=== PATIENT | male | born 1945 | race Caucasian/White ===

== ENCOUNTER 2018-10-29 11:40 | Inpatient (IN) | payer MEDICARE, BC, OTHER ==
[~2018-10-29] VITALS: Ht 160 cm; Wt 73.6 kg
[2018-10-29] VITALS (10 sets, daily range): BP systolic 91–110; BP diastolic 52–75; BMI 23.2
[2018-10-29] MEDS ORDERED: VITAMIN D3400 UNI1 PO (11:50)
[2018-10-29] MEDS ORDERED: LIPITOR20 MG PO (11:52)
[2018-10-29] MEDS ORDERED: HUMIRA SC (11:52)
[2018-10-29] MEDS ORDERED: ALEVE220 MG PO (11:53)
[2018-10-29 12:55] LABS: HEMOGLOBIN 8.8 g/dL (13.5-17.5); MCHC 33.8 g/dL (31.0-37.0); MCV 85.8 fL (80.0-100.0); MEAN PLATELET VOLUME 10.3 fL (7.4-10.4); PLATELET COUNT 145 10x3/uL (130-400); RBC 3.03 10x6/uL (4.20-6.10); RDW 17.4 % (11.5-14.5)
[2018-10-29 12:59] LABS: WBC 0.4 10x3/uL (4.8-10.8)
[2018-10-29 13:01] LABS: APTT 47.6 SECONDS (22.8-39.4); INR 1.33 (0.85-1.17); PROTIME 15.9 SECONDS (11.6-15.0)
[2018-10-29 13:16] LABS: BASOPHILS 4 % (0-2); LYMPHOCYTES 48 % (15-50); MONOCYTES 20 % (2-11); NEUTROPHILS 14 % (40-80); PLATELET ESTIMATE DECREASED; PLATELET MORPHOLOGY NORMAL PLT MORPH
[2018-10-29 13:21] LABS: CKMB 0.3 U/L (0.0-3.6)
[2018-10-29 13:25] LABS: D-DIMER-QUANTITATIVE 1.61 ug/mLFEU (0.20-0.54)
[2018-10-29 13:37] LABS: TROPONIN-I 0.139 ng/mL (0.000-0.060)
[2018-10-29 14:25] LABS: ALBUMIN 2.7 g/dL (3.4-5.0); ANION GAP 18.9 mmol/L (8-16); BILIRUBIN - TOTAL 1.55 mg/dL (0.2-1.3); CALCIUM 8.1 mg/dL (8.5-10.1); CARBON DIOXIDE 22.1 mmol/L (21.0-32.0); CREATININE - SERUM 1.6 mg/dL (0.6-1.3)
[2018-10-29 18:20] LABS: APPEARANCE CLEAR (CLEAR); BILIRUBIN NEGATIVE (NEGATIVE); COLOR AMBER (YELLOW); GLUCOSE NEGATIVE (NEGATIVE); KETONE NEGATIVE (NEGATIVE); NITRITE NEGATIVE (NEGATIVE); PROTEIN TRACE mg/dL (NEGATIVE); UROBILINOGEN NORMAL (NORMAL)
[2018-10-30] VITALS (25 sets, daily range): BP systolic 79–129; BP diastolic 47–82
[2018-10-30 04:06] LABS: BASOPHILS 0 % (0-2); EOSINOPHILS 0 % (0-7); HEMATOCRIT 20.5 % (42.0-54.0); MCH 30.1 pg (26.0-34.0); MCHC 34.6 g/dL (31.0-37.0); MCV 86.9 fL (80.0-100.0); MEAN PLATELET VOLUME 9.7 fL (7.4-10.4); MONOCYTES 22.2 % (2-11); NEUTROPHILS 27.8 % (40-80); RDW 17.5 % (11.5-14.5)
[2018-10-30 04:24] LABS: HEMOGLOBIN 7.1 g/dL (13.5-17.5); PLATELET COUNT 108 10x3/uL (130-400); RBC 2.36 10x6/uL (4.20-6.10); WBC 0.5 10x3/uL (4.8-10.8)
[2018-10-30 05:01] LABS: ALBUMIN 1.8 g/dL (3.4-5.0); ALT (SGPT) 16 U/L (10-68); BILIRUBIN - TOTAL 1.02 mg/dL (0.2-1.3); CALC OSMOLALITY 272 mosm/kg (275-300); CHLORIDE - SERUM 105 mmol/L (98-107); CREATININE - SERUM 1.3 mg/dL (0.6-1.3); GLUCOSE 95 mg/dL (74-106); POTASSIUM - SERUM 3.9 mmol/L (3.5-5.1); SODIUM 136 mmol/L (136-145); T4 THYROXINE 6.9 ug/dL (4.7-13.3); UREA NITROGEN 16 mg/dL (7-18); eGFR NON AFRICAN AMERICAN 58 mL/min (90-120)
[2018-10-30 05:31] LABS: ALKALINE PHOSPHATASE 57 U/L (46-116); CKMB 0.6 U/L (0.0-3.6); CREATINE KINASE 110 UL (21-232); PROTEIN - SERUM 5.4 g/dL (6.4-8.2)
[2018-10-30 05:32] LABS: THYROID STIMULATING HORMONE 1.78 uIU/mL (0.36-3.74); TROPONIN-I 0.173 ng/mL (0.000-0.060)
[2018-10-30 05:33] LABS: CALCIUM 6.7 mg/dL (8.5-10.1)
[2018-10-30 06:59] LABS: APPEARANCE CLEAR (CLEAR); BILIRUBIN NEGATIVE (NEGATIVE); COLOR YELLOW (YELLOW); GLUCOSE NEGATIVE (NEGATIVE); KETONE NEGATIVE (NEGATIVE); NITRITE NEGATIVE (NEGATIVE); PROTEIN NEGATIVE (NEGATIVE); UROBILINOGEN NORMAL (NORMAL)
[2018-10-31] VITALS (24 sets, daily range): BP systolic 94–142; BP diastolic 49–88; BMI 25.3
[2018-10-31 04:12] LABS: BASOPHILS 0 % (0-2); EOSINOPHILS 0 % (0-7); IMMATURE GRANULOCYTES 1.7 % (0-5); MCH 29.3 pg (26.0-34.0); MCHC 34.6 g/dL (31.0-37.0); MEAN PLATELET VOLUME 10.4 fL (7.4-10.4); MONOCYTES 29.2 % (2-11); NEUTROPHILS 49.1 % (40-80); RDW 16.8 % (11.5-14.5)
[2018-10-31 04:13] LABS: ALBUMIN 1.8 g/dL (3.4-5.0); ALKALINE PHOSPHATASE 64 U/L (46-116); BILIRUBIN - TOTAL 1.03 mg/dL (0.2-1.3); CALC OSMOLALITY 264 mosm/kg (275-300); CARBON DIOXIDE 16.1 mmol/L (21.0-32.0); CHLORIDE - SERUM 104 mmol/L (98-107); GLUCOSE 82 mg/dL (74-106); POTASSIUM - SERUM 3.4 mmol/L (3.5-5.1); PROTEIN - SERUM 4.8 g/dL (6.4-8.2); SODIUM 133 mmol/L (136-145); UREA NITROGEN 13 mg/dL (7-18); eGFR NON AFRICAN AMERICAN 78 mL/min (90-120)
[2018-10-31 04:14] LABS: ALT (SGPT) 21 U/L (10-68); CALCIUM 6.1 mg/dL (8.5-10.1)
[2018-10-31 04:16] LABS: HEMATOCRIT 28.3 % (42.0-54.0); HEMOGLOBIN 9.8 g/dL (13.5-17.5); MCV 84.5 fL (80.0-100.0); PLATELET COUNT 148 10x3/uL (130-400); RBC 3.35 10x6/uL (4.20-6.10); WBC 1.2 10x3/uL (4.8-10.8)
[2018-10-31 07:05] LABS: HEMATOCRIT 30.3 % (42.0-54.0); HEMOGLOBIN 10.6 g/dL (13.5-17.5); MCH 29.4 pg (26.0-34.0); MCV 84.2 fL (80.0-100.0); RDW 16.9 % (11.5-14.5)
[2018-10-31 07:06] LABS: PLATELET COUNT 188 10x3/uL (130-400); WBC 2.4 10x3/uL (4.8-10.8)
[2018-10-31 07:47] LABS: ALBUMIN 1.8 g/dL (3.4-5.0); ANION GAP 18.7 mmol/L (8-16); BILIRUBIN - TOTAL 1.11 mg/dL (0.2-1.3); CARBON DIOXIDE 18.7 mmol/L (21.0-32.0); CREATININE - SERUM 1.1 mg/dL (0.6-1.3); POTASSIUM - SERUM 3.4 mmol/L (3.5-5.1); PROTEIN - SERUM 5.6 g/dL (6.4-8.2)
[2018-10-31 08:03] LABS: CALCIUM 6.5 mg/dL (8.5-10.1); TROPONIN-I 0.464 ng/mL (0.000-0.060)
[2018-10-31 08:15] LABS: ANISOCYTOSIS OCC; CRENATED CELLS OCC; LYMPHOCYTES 22 % (15-50); MONOCYTES 18 % (2-11); NEUTROPHILS 52 % (40-80); PLATELET ESTIMATE NORMAL; ROULEAUX OCC
[2018-11-01] VITALS (24 sets, daily range): BP systolic 94–137; BP diastolic 55–77
[2018-11-01 06:43] LABS: HEMATOCRIT 26.5 % (42.0-54.0); MCH 28.8 pg (26.0-34.0); MCV 84.7 fL (80.0-100.0); MEAN PLATELET VOLUME 10.4 fL (7.4-10.4); PLATELET COUNT 178 10x3/uL (130-400); RBC 3.13 10x6/uL (4.20-6.10); RDW 17.2 % (11.5-14.5); WBC 3.3 10x3/uL (4.8-10.8)
[2018-11-01 06:54] LABS: ALBUMIN 1.5 g/dL (3.4-5.0); ALKALINE PHOSPHATASE 57 U/L (46-116); BILIRUBIN - TOTAL 0.79 mg/dL (0.2-1.3); CALC OSMOLALITY 272 mosm/kg (275-300); CARBON DIOXIDE 16.2 mmol/L (21.0-32.0); CHLORIDE - SERUM 105 mmol/L (98-107); GLUCOSE 90 mg/dL (74-106); POTASSIUM - SERUM 3.1 mmol/L (3.5-5.1); SODIUM 136 mmol/L (136-145); UREA NITROGEN 14 mg/dL (7-18); eGFR NON AFRICAN AMERICAN 78 mL/min (90-120)
[2018-11-01 07:00] LABS: ALT (SGPT) 15 U/L (10-68)
[2018-11-01 07:01] LABS: CALCIUM 6.3 mg/dL (8.5-10.1); TROPONIN-I 1.231 ng/mL (0.000-0.060)
[2018-11-01 07:53] LABS: LYMPHOCYTES 20 % (15-50); MONOCYTES 18 % (2-11); NEUTROPHILS 45 % (40-80); PLATELET ESTIMATE NORMAL
--- NOTE | 2018-11-01 17:48 | MORECARE ---
CASE MANAGEMENT DISCHARGE SUMMARY PATIENT: MEAGHAN MARADIAGA UNIT: [id number] ADM DATE: 10/29/18 AGE: 73 : 47 SEX: M ROOM/BED: D.2306 AUTHOR: ANA POLLACK PHYSICIAN: REFERRING PHYSICIAN: DAYANNA SANDERS MD DATE OF SERVICE: 11/01/18 Discharge Plan Patient Name: MEAGHAN MARADIAGA Facility: [facility]:[place] : 1945 Planned Disposition: Anticipated Discharge Date: Discharge Date: Expected LOS: Initial Reviewer: [email or web address] Initial Review Date: 10/29/2018 Generated: 11/01/18 6:47 pm Patient Name: MEAGHAN MARADIAGA Page 26256 at 1748 All edits/amendments must be made on the electronic document DICTATION DATE: 11/01/181746 DONOR SERVICES COORDINATOR: SADIE 11/01/181746 RPT#: [id number] [place] DATE: STATUS: ADM IN [facility] [address] [place] [address] END OF REPORT
[2018-11-02] VITALS (22 sets, daily range): BP systolic 96–142; BP diastolic 52–81; Ht 160 cm; Wt 73.6 kg
[2018-11-02 06:22] LABS: ALBUMIN 1.5 g/dL (3.4-5.0); ALKALINE PHOSPHATASE 77 U/L (46-116); ALT (SGPT) 17 U/L (10-68); BILIRUBIN - TOTAL 0.72 mg/dL (0.2-1.3); CALC OSMOLALITY 273 mosm/kg (275-300); CARBON DIOXIDE 17.5 mmol/L (21.0-32.0); CHLORIDE - SERUM 105 mmol/L (98-107); GLUCOSE 129 mg/dL (74-106); PROTEIN - SERUM 5.2 g/dL (6.4-8.2); SODIUM 136 mmol/L (136-145); UREA NITROGEN 12 mg/dL (7-18); eGFR NON AFRICAN AMERICAN 78 mL/min (90-120)
[2018-11-02 06:26] LABS: POTASSIUM - SERUM 2.8 mmol/L (3.5-5.1)
[2018-11-02 06:27] LABS: CALCIUM 6.8 mg/dL (8.5-10.1)
[2018-11-02 06:40] LABS: HEMATOCRIT 27.1 % (42.0-54.0); HEMOGLOBIN 9.4 g/dL (13.5-17.5); MCH 28.7 pg (26.0-34.0); MCHC 34.7 g/dL (31.0-37.0); MEAN PLATELET VOLUME 10.2 fL (7.4-10.4); RBC 3.28 10x6/uL (4.20-6.10); RDW 17.6 % (11.5-14.5)
[2018-11-02 06:45] LABS: MCV 82.6 fL (80.0-100.0); PLATELET COUNT 249 10x3/uL (130-400); WBC 7.8 10x3/uL (4.8-10.8)
[2018-11-02 07:39] LABS: LYMPHOCYTES 16 % (15-50); MONOCYTES 11 % (2-11); NEUTROPHILS 60 % (40-80); PLATELET ESTIMATE NORMAL; PLATELET MORPHOLOGY NORMAL PLT MORPH
--- NOTE | 2018-11-02 18:13 | MORECARE ---
CASE MANAGEMENT DISCHARGE SUMMARY PATIENT: MEAGHAN MARADIAGA UNIT: [id number] ADM DATE: 10/29/18 AGE: 73 : 47 SEX: M ROOM/BED: D.2306 AUTHOR: ANA POLLACK PHYSICIAN: REFERRING PHYSICIAN: DAYANNA SANDERS MD DATE OF SERVICE: 11/02/18 Discharge Plan Patient Name: MEAGHAN MARADIAGA Facility: [facility]:[place] : 1945 Planned Disposition: Home Anticipated Discharge Date: Discharge Date: Expected LOS: Initial Reviewer: [email or web address] Initial Review Date: 10/29/2018 Generated: 11/02/18 7:13 pm Comments DCP- Discharge Planning Updated by [email or web address]: Josi Nava on 11/01/18 4:[address] CM attempted to meet with patient regarding discharge planning. He is currently on BiPAP and unable to speak at this time. CM will continue to follow and assist as needed with discharge planning / needs. DCPIA - Discharge Planning Initial Assessment Updated by [email or web address]: Josi Nava on 11/02/18 6:10 pm * Is the patient Alert and Oriented? Yes * How many steps to enter\exit or inside your home? * PCP Dr. Mcdonald - [facility] * [facility] * Preadmission Environment Home with Family * ADLs Independent * Other Equipment walker, cane * List name and contact numbers for known caregivers / representatives who currently or will assist patient after discharge: Nimisha Maradiaga - - [phone] * Verbal permission to speak to the caregivers and representatives has been obtained from the patient. N/A * Community resources currently utilized None * Additional services required to return to the preadmission environment? No * Can the patient safely return to the preadmission environment? Yes * Has this patient been hospitalized within the prior 30 days at any hospital? No Last DP export: 11/01/18 4:47 pm Patient Name: MEAGHAN MARADIAGA Page 78855 at 1813 All edits/amendments must be made on the electronic document DICTATION DATE: 11/02/181812 PHOTO MASK INSPECTOR: SADIE 11/02/18 1813 RPT#: [id number] DC DATE: STATUS: ADM IN [facility] [address] [facility] [place] [address] END OF REPORT
--- NOTE | 2018-11-02 18:21 | MORECARE ---
CASE MANAGEMENT DISCHARGE SUMMARY PATIENT: MEAGHAN MARADIAGA UNIT: [id number] ADM DATE: 10/29/18 AGE: 73 : 47 SEX: M ROOM/BED: D.2306 AUTHOR: RANJEET,DOC PHYSICIAN: REFERRING PHYSICIAN: DAYANNA SANDERS MD DATE OF SERVICE: 11/02/18 Discharge Plan Patient Name: MEAGHAN MARADIAGA Facility: [facility]:[place] : 1945 Planned Disposition: Home Anticipated Discharge Date: Discharge Date: Expected LOS: Initial Reviewer: [email or web address] Initial Review Date: 10/29/2018 Generated: 11/02/18 7:21 pm Comments DCP- Discharge Planning Updated by [email or web address]: Josi Nava on 11/02/18 5:[address] Patient Name: MEAGHAN MARADIAGA Admission Status: ER Accout number: [id number] Admission Date: 10-29-2018 : 1945 Admission Diagnosis:SEPSIS, UNSPECIFIED ORGANISM Attending: DAYANNA SANDERS Current LOS: 4 Anticipated DC Date: Planned Disposition: Home Primary Insurance: MEDICARE A & B Discharge Planning Comments: CM met with patient at bedside. Patient states he lives at home with his (Nimisha) and plans to return upon discharge. Patient states he does have a walker and cane at home. Patient denies any home health services currently. Patient may need walk test if still requiring 02 upon discharge. CM will continue to follow and assist as needed with discharge planning / needs. Superintendent Custodian Janitor: Josi Nava DCP- Discharge Planning Updated by [email or web address]: Josi Nava on 11/01/18 4:[address] CM attempted to meet with patient regarding discharge planning. He is currently on BiPAP and unable to speak at this time. CM will continue to follow and assist as needed with discharge planning / needs. DCPIA - Discharge Planning Initial Assessment Updated by [email or web address]: Josi Nava on 11/02/18 6:10 pm * Is the patient Alert and Oriented? Yes * How many steps to enter\exit or inside your home? * PCP Dr. Mcdonald - [place] [facility] * [facility] * Preadmission Environment Home with Family * ADLs Independent * Other Equipment walker, cane * List name and contact numbers for known caregivers / representatives who currently or will assist patient after discharge: Nimisha Maradiaga - - [phone] * Verbal permission to speak to the caregivers and representatives has been obtained from the patient. N/A * Community resources currently utilized None * Additional services required to return to the preadmission environment? No * Can the patient safely return to the preadmission environment? Yes * Has this patient been hospitalized within the prior 30 days at any hospital? No Last DP export: 11/02/18 5:13 pm Patient Name: MEAGHAN MARADIAGA Page 55727 at 1821 All edits/amendments must be made on the electronic document DICTATION DATE: 11/02/181820 WASTE DISPOSAL LEAKAGE TESTER: SADIE 11/02/181820 RPT#: [id number] DC DATE: STATUS: ADM IN [facility] [address] [place] [address] END OF REPORT
[2018-11-03] VITALS: BP 125/78
[2018-11-03 04:00] VITALS: BP 129/62
[2018-11-03 08:20] LABS: HEMATOCRIT 28.3 % (42.0-54.0); MCH 29.2 pg (26.0-34.0); MCHC 35.3 g/dL (31.0-37.0); MCV 82.5 fL (80.0-100.0); PLATELET COUNT 268 10x3/uL (130-400); RBC 3.43 10x6/uL (4.20-6.10); RDW 18.2 % (11.5-14.5)
[2018-11-03 08:23] LABS: WBC 10.8 10x3/uL (4.8-10.8)
[2018-11-03 08:31] LABS: ALBUMIN 1.4 g/dL (3.4-5.0); ALKALINE PHOSPHATASE 91 U/L (46-116); ALT (SGPT) 18 U/L (10-68); BILIRUBIN - TOTAL 0.74 mg/dL (0.2-1.3); CALC OSMOLALITY 273 mosm/kg (275-300); CALCIUM 7.2 mg/dL (8.5-10.1); CARBON DIOXIDE 19.4 mmol/L (21.0-32.0); CHLORIDE - SERUM 106 mmol/L (98-107); GLUCOSE 110 mg/dL (74-106); SODIUM 137 mmol/L (136-145); UREA NITROGEN 10 mg/dL (7-18); eGFR NON AFRICAN AMERICAN 78 mL/min (90-120)
[2018-11-03 08:40] LABS: POTASSIUM - SERUM 2.6 mmol/L (3.5-5.1)
[2018-11-03 08:51] LABS: LYMPHOCYTES 21 % (15-50); MONOCYTES 9 % (2-11); NEUTROPHILS 60 % (40-80); PLATELET ESTIMATE NORMAL; PLATELET MORPHOLOGY GIANT PLTS PRESENT
--- NOTE | 2018-11-03 08:52 | MORECARE ---
CASE MANAGEMENT DISCHARGE SUMMARY PATIENT: MEAGHAN MARADIAGA UNIT: [id number] ADM DATE: 10/29/18 AGE: 73 : 47 SEX: M ROOM/BED: D.2108 AUTHOR: RANJEET,DOC PHYSICIAN: REFERRING PHYSICIAN: DAYANNA SANDERS MD DATE OF SERVICE: 11/03/18 Discharge Plan Patient Name: MEAGHAN MARADIAGA Facility: [facility]:[place] : 1945 Planned Disposition: Home Anticipated Discharge Date: Discharge Date: Expected LOS: Initial Reviewer: [email or web address] Initial Review Date: 10/29/2018 Generated: 11/03/18 9:52 am Comments DCP- Discharge Planning Updated by [email or web address]: Josi Nava on 11/02/18 5:[address] Patient Name: MEAGHAN MARADIAGA Admission Status: ER Accout number: [id number] Admission Date: 10-29-2018 : 1945 Admission Diagnosis:SEPSIS, UNSPECIFIED ORGANISM Attending: DAYANNA SANDERS Current LOS: 4 Anticipated DC Date: Planned Disposition: Home Primary Insurance: MEDICARE A & B Discharge Planning Comments: CM met with patient at bedside. Patient states he lives at home with his (Nimisha) and plans to return upon discharge. Patient states he does have a walker and cane at home. Patient denies any home health services currently. Patient may need walk test if still requiring 02 upon discharge. CM will continue to follow and assist as needed with discharge planning / needs. Contact Center Specialist: Josi Nava DCP- Discharge Planning Updated by [email or web address]: Josi Nava on 11/01/18 4:[address] CM attempted to meet with patient regarding discharge planning. He is currently on BiPAP and unable to speak at this time. CM will continue to follow and assist as needed with discharge planning / needs. DCPIA - Discharge Planning Initial Assessment Updated by [email or web address]: Josi Nava on 11/02/18 6:10 pm * Is the patient Alert and Oriented? Yes * How many steps to enter\exit or inside your home? * PCP Dr. Mcdonald - [place] [facility] * [facility] * Preadmission Environment Home with Family * ADLs Independent * Other Equipment walker, cane * List name and contact numbers for known caregivers / representatives who currently or will assist patient after discharge: Nimisha Maradiaga - - [phone] * Verbal permission to speak to the caregivers and representatives has been obtained from the patient. N/A * Community resources currently utilized None * Additional services required to return to the preadmission environment? No * Can the patient safely return to the preadmission environment? Yes * Has this patient been hospitalized within the prior 30 days at any hospital? No Last DP export: 11/02/18 5:21 pm Patient Name: MEAGHAN MARADIAGA Page 90622 at 0852 All edits/amendments must be made on the electronic document DICTATION DATE: 11/03/18850 OUTSIDE PRODUCTION INSPECTOR: SADIE 11/03/18850 RPT#: [id number] DC DATE: STATUS: ADM IN [facility] [address] [place] [address] END OF REPORT
[2018-11-03 09:33] VITALS: BP 126/66
[2018-11-03 12:18] VITALS: BP 125/62
[2018-11-03 17:44] VITALS: BP 135/54
[2018-11-03 19:10] LABS: AEROBE ID Final report (())
[2018-11-03 20:00] VITALS: BP 143/81
[2018-11-04 00:36] VITALS: BP 133/74
[2018-11-04 04:00] VITALS: BP 137/86
[2018-11-04 05:00] LABS: BASOPHILS 0.9 % (0-2); EOSINOPHILS 0 % (0-7); HEMATOCRIT 28.6 % (42.0-54.0); LYMPHOCYTES 8.9 % (15-50); MCH 29.3 pg (26.0-34.0); MCV 83.9 fL (80.0-100.0); MEAN PLATELET VOLUME 9.7 fL (7.4-10.4); MONOCYTES 20.4 % (2-11); NEUTROPHILS 61.8 % (40-80); PLATELET COUNT 285 10x3/uL (130-400); RBC 3.41 10x6/uL (4.20-6.10); RDW 18.3 % (11.5-14.5); WBC 11.6 10x3/uL (4.8-10.8)
[2018-11-04 05:15] LABS: ALBUMIN 1.4 g/dL (3.4-5.0); ANION GAP 13.5 mmol/L (8-16); BILIRUBIN - TOTAL 0.59 mg/dL (0.2-1.3); CALCIUM 7.4 mg/dL (8.5-10.1); CARBON DIOXIDE 21.6 mmol/L (21.0-32.0); CREATININE - SERUM 1.1 mg/dL (0.6-1.3); POTASSIUM - SERUM 3.1 mmol/L (3.5-5.1); PROTEIN - SERUM 4.9 g/dL (6.4-8.2)
[2018-11-04 07:49] VITALS: BP 140/72
[2018-11-04 11:25] VITALS: BP 135/76
--- NOTE | 2018-11-04 12:22 | EC ---
PATIENT:MEAGHAN MARADIAGA DATE OF SERVICE: 10/29/18 SEX: M MEDICAL RECORD: [id number] DATE OF : [birth year] LOCATION:D.M2 D.210 AGE OF PATIENT: 73 ADMISSION DATE: 10/29/18 REFERRING PHYSICIAN: INTERPRETING PHYSICIAN: FELI CORTEZ MD ECHOCARDIOGRAM REPORT ECHO CHARGES 4 ECHO COMPLETE Date: 10/30/18 CLINICAL DIAGNOSIS: A-FIB ECHOCARDIOGRAPHIC MEASUREMENTS (adult normal given) AC root (d.<3.7cm) 3.5 cm LV Septum d (<1.2 cm> 1.0 cm Valve Excursion 2.1 cm LV Septum (systole) 1.7 cm Left Atria (s.<4.0cm> 3.9 cm LVPW d(<1.2cm) 1.2 cm RV (d.<2.3cm) 3.1 cm LVPW (sytole) 2.0 cm LV diastole(<5.6CM) 4.9 cm MV E-F(>70mm/sec) cm LV systole 2.2 cm LVOT Diameter 1.9 cm MV exc.(>10mm) cm Est.ejection fraction (50-75%) % DOPPLER: LVIT cm/sec A 48.0 cm/sec E 117 cm/sec LA cm/sec RVSP 57.3 mmHg LVOT 128 cm/sec AOP1/2T m/s Asc. Ao 164 cm/sec RVOT 70.0 cm/sec RA cm/sec PA 101 cm/sec AV Gradient Peak 11.0 mmHg AV Mean 4.2 mmHg AV Area 2.5 cm MV Gradient Peak 6.5 mmHg MV Mean 2.3 mmHg MV Area cm COMMENTS: Senior Instructor: 1 ORA HANSENOE Grain Packer: 3 Dr. Reina TAPE# PACS Pericardial Effusion N DATE OF SERVICE: Adequate 2-D echo, color flow and spectral Doppler, and M-Mode. Borderline LVH. LV internal dimension is normal. Wall motion is normal. EF is greater than or equal to 55%. Aortic valve is tricuspid. There is no evidence of stenosis by Doppler interrogation. Left atrium is normal at 3.9 cm. Mitral valve shows no prolapse. Rhrm-of-ohhpviyr MR. Right-sided chambers are grossly normal. Moderate TR. RV systolic pressure is estimated at greater than or equal to 57 mmHg via the continuity equation. ECHOCARDIOGRAM REPORT [id number] MEAGHAN MARADIAGA TRANSINT:[id number] Voice Confirmation ID: [id number] DOCUMENT ID: [id number] FELI CORTEZ MD at 1222 CC: [id number] DICTATION DATE: 10/31/18 1108 IRONWORKER: 10/31/18 1117 ADM IN [facility] [address] [place] [address]
[2018-11-04 15:33] VITALS: BP 147/67
[2018-11-04 19:55] VITALS: BP 121/67
[2018-11-05] VITALS (7 sets, daily range): BP systolic 103–139; BP diastolic 47–78
[2018-11-05 06:34] LABS: HEMATOCRIT 26.2 % (42.0-54.0); MCH 28.8 pg (26.0-34.0); MCHC 34.4 g/dL (31.0-37.0); MEAN PLATELET VOLUME 9.6 fL (7.4-10.4); PLATELET COUNT 247 10x3/uL (130-400); RBC 3.12 10x6/uL (4.20-6.10); RDW 18.8 % (11.5-14.5); WBC 10.2 10x3/uL (4.8-10.8)
[2018-11-05 06:50] LABS: ALBUMIN 1.4 g/dL (3.4-5.0); ALKALINE PHOSPHATASE 87 U/L (46-116); CALC OSMOLALITY 277 mosm/kg (275-300); CALCIUM 7.3 mg/dL (8.5-10.1); CHLORIDE - SERUM 108 mmol/L (98-107); GLUCOSE 86 mg/dL (74-106); POTASSIUM - SERUM 3.3 mmol/L (3.5-5.1); PROTEIN - SERUM 4.6 g/dL (6.4-8.2); SODIUM 141 mmol/L (136-145); UREA NITROGEN 8 mg/dL (7-18); eGFR NON AFRICAN AMERICAN 78 mL/min (90-120)
[2018-11-05 06:51] LABS: ALT (SGPT) 21 U/L (10-68)
[2018-11-05 07:21] LABS: LYMPHOCYTES 13 % (15-50); MONOCYTES 17 % (2-11); NEUTROPHILS 61 % (40-80); PLATELET ESTIMATE NORMAL
[2018-11-06 03:53] VITALS: BP 142/75
[2018-11-06 05:13] LABS: ALBUMIN 1.5 g/dL (3.4-5.0); ANION GAP 11.7 mmol/L (8-16); BILIRUBIN - TOTAL 0.57 mg/dL (0.2-1.3); CALCIUM 7.4 mg/dL (8.5-10.1); CREATININE - SERUM 1.1 mg/dL (0.6-1.3); POTASSIUM - SERUM 3.7 mmol/L (3.5-5.1)
[2018-11-06 08:20] VITALS: BP 134/75
[2018-11-06 11:11] LABS: BASOPHILS 0.2 % (0-2); EOSINOPHILS 0.3 % (0-7); HEMATOCRIT 25.9 % (42.0-54.0); HEMOGLOBIN 8.8 g/dL (13.5-17.5); IMMATURE GRANULOCYTES 8.7 % (0-5); LYMPHOCYTES 7.8 % (15-50); MCH 29.4 pg (26.0-34.0); MEAN PLATELET VOLUME 9.6 fL (7.4-10.4); MONOCYTES 26.3 % (2-11); NEUTROPHILS 56.7 % (40-80); PLATELET COUNT 265 10x3/uL (130-400); RBC 2.99 10x6/uL (4.20-6.10); WBC 10.4 10x3/uL (4.8-10.8)
[2018-11-06 11:13] LABS: MCV 86.6 fL (80.0-100.0)
[2018-11-06 15:34] VITALS: BP 123/66
--- NOTE | 2018-11-06 18:20 | MORECARE ---
CASE MANAGEMENT DISCHARGE SUMMARY PATIENT: MIGUEL ANGEL MARADIAGA UNIT: [id number] ADM DATE: 10/29/18 AGE: 73 : [birth year] SEX: M ROOM/BED: D.2101 AUTHOR: ANA POLLACK PHYSICIAN: REFERRING PHYSICIAN: DAYANNA SANDERS MD DATE OF SERVICE: 11/06/18 Discharge Plan Patient Name: MIGUEL ANGEL MARADIAGA Facility: [facility]:[place] : 1945 Planned Disposition: Home Anticipated Discharge Date: Discharge Date: Expected LOS: Initial Reviewer: [email or web address] Initial Review Date: 10/29/2018 Generated: 11/06/18 7:19 pm Comments DCP- Discharge Planning Updated by [email or web address]: Pallavi Bell on 11/06/18 5:[address] Patient is in agreement with #1 [facility] Inpatient Re[facility], #2 [facility]. Patient choice for same obtained, faxed order to [facility] Rehab. IMM signed and copies of each provided for patient. Voices no other needs at this time. Pallavi Bell RN CM DCP- Discharge Planning Updated by [email or web address]: Josi Nava on 11/02/18 5:[address] Patient Name: MIGUEL ANGEL MARADIAGA Admission Status: ER Accout number: [id number] Admission Date: 10-29-2018 : 1945 Admission Diagnosis:SEPSIS, UNSPECIFIED ORGANISM Attending: DAYANNA SANDERS Current LOS: 4 Anticipated DC Date: Planned Disposition: Home Primary Insurance: MEDICARE A & B Discharge Planning Comments: CM met with patient at bedside. Patient states he lives at home with his (Nmiisha) and plans to return upon discharge. Patient states he does have a walker and cane at home. Patient denies any home health services currently. Patient may need walk test if still requiring 02 upon discharge. CM will continue to follow and assist as needed with discharge planning / needs. Glass Carrier: Josi Nava DCP- Discharge Planning Updated by [email or web address]: Josi Nava on 11/01/18 4:[address] CM attempted to meet with patient regarding discharge planning. He is currently on BiPAP and unable to speak at this time. CM will continue to follow and assist as needed with discharge planning / needs. DCPIA - Discharge Planning Initial Assessment Updated by [email or web address]: Josi Nava on 11/02/18 6:10 pm * Is the patient Alert and Oriented? Yes * How many steps to enter\exit or inside your home? * PCP Dr. Mcdonald - [place] [facility] * [facility] * Preadmission Environment Home with Family * ADLs Independent * Other Equipment walker, cane * List name and contact numbers for known caregivers / representatives who currently or will assist patient after discharge: Nimisha Maradiaga - - [phone] * Verbal permission to speak to the caregivers and representatives has been obtained from the patient. N/A * Community resources currently utilized None * Additional services required to return to the preadmission environment? No * Can the patient safely return to the preadmission environment? Yes * Has this patient been hospitalized within the prior 30 days at any hospital? No Coverage Notice Reviewer: [email or web address] Kishan Bell Notice Issued Date-Time: 11/06/2018 18:04 Notice Type: Patient Choice Letter Notice Delivered To: Patient Relationship to Patient: Self Direct Service Provider Name: Miguel Angel Maradiaga Delivery Method: - Dennise Days: Prior Verbal Notification: Recipient Understood Notice: Recipient Signature: Med Rec Note Co-signed by Attending: Coverage Notice Comment: Reviewer: [email or web address] Kishan Bell Notice Issued Date-Time: 11/06/2018 18:04 Notice Type: IM Admission Notice Notice Delivered To: Patient Relationship to Patient: Self Direct Service Provider Name: Miguel Angel Maradiaga Delivery Method: - Dennise Days: Prior Verbal Notification: Recipient Understood Notice: Recipient Signature: Med Rec Note Co-signed by Attending: Coverage Notice Comment: Last DP export: 11/03/18 7:52 am Patient Name: MIGUEL ANGEL MARADIAGA Page 53563 at 1820 All edits/amendments must be made on the electronic document DICTATION DATE: 11/06/181818 CANCER SPEC: SADIE 11/06/181818 RPT#: [id number] DC DATE: STATUS: ADM IN [facility] [address] [place] [address] END OF REPORT
[2018-11-06 21:15] VITALS: BP 130/76
[2018-11-07 01:40] VITALS: BP 136/74
[2018-11-07 04:50] LABS: HEMATOCRIT 23.7 % (42.0-54.0); HEMOGLOBIN 8.1 g/dL (13.5-17.5); MCH 28.9 pg (26.0-34.0); MCHC 34.2 g/dL (31.0-37.0); MEAN PLATELET VOLUME 9.6 fL (7.4-10.4); PLATELET COUNT 233 10x3/uL (130-400); RDW 18.7 % (11.5-14.5); WBC 7.8 10x3/uL (4.8-10.8)
[2018-11-07 04:56] VITALS: BP 139/73
[2018-11-07 04:57] LABS: MCV 84.6 fL (80.0-100.0)
[2018-11-07 04:59] LABS: CALC OSMOLALITY 277 mosm/kg (275-300); CALCIUM 7.2 mg/dL (8.5-10.1); CARBON DIOXIDE 24.8 mmol/L (21.0-32.0); CHLORIDE - SERUM 107 mmol/L (98-107); CREATININE - SERUM 0.9 mg/dL (0.6-1.3); GLUCOSE 88 mg/dL (74-106); POTASSIUM - SERUM 3.3 mmol/L (3.5-5.1); SODIUM 141 mmol/L (136-145); UREA NITROGEN 6 mg/dL (7-18); eGFR NON AFRICAN AMERICAN 88 mL/min (90-120)
[2018-11-07 05:42] LABS: LYMPHOCYTES 11 % (15-50); MONOCYTES 22 % (2-11); NEUTROPHILS 67 % (40-80); PLATELET ESTIMATE NORMAL
[2018-11-07 07:45] VITALS: BP 139/76
[2018-11-07 11:24] VITALS: BP 142/69
--- NOTE | 2018-11-07 11:30 | MORECARE ---
CASE MANAGEMENT DISCHARGE SUMMARY PATIENT: MIGUEL ANGEL MARADIAGA UNIT: [id number] ADM DATE: 10/29/18 AGE: 73 : [birth year] SEX: M ROOM/BED: D.2106 AUTHOR: ANA POLLACK PHYSICIAN: REFERRING PHYSICIAN: DAYANNA SANDERS MD DATE OF SERVICE: 11/07/18 Discharge Plan Patient Name: MIGUEL ANGEL MARADIAGA Facility: [facility]:[place] : 1945 Planned Disposition: Home Anticipated Discharge Date: Discharge Date: Expected LOS: Initial Reviewer: [email or web address] Initial Review Date: 10/29/2018 Generated: 11/07/18 12:30 pm Comments DCP- Discharge Planning Updated by [email or web address]: Pallavi Bell on 11/06/18 5:[address] Patient is in agreement with #1 [facility] Inpatient Rehab, #2 [facility]Rehab. Patient choice for same obtained, faxed order to [facility] Rehab. IMM signed and copies of each provided for patient. Voices no other needs at this time. Pallavi Bell RN CM DCP- Discharge Planning Updated by [email or web address]: Josi Nava on 11/02/18 5:[address] Patient Name: MIGUEL ANGEL MARADIAGA Admission Status: ER Accout number: [id number] Admission Date: 10-29-2018 : 1945 Admission Diagnosis:SEPSIS, UNSPECIFIED ORGANISM Attending: DAYANNA SANDERS Current LOS: 4 Anticipated DC Date: Planned Disposition: Home Primary Insurance: MEDICARE A & B Discharge Planning Comments: CM met with patient at bedside. Patient states he lives at home with his (Nimisha) and plans to return upon discharge. Patient states he does have a walker and cane at home. Patient denies any home health services currently. Patient may need walk test if still requiring 02 upon discharge. CM will continue to follow and assist as needed with discharge planning / needs. Student Union Consultant: Josi Nava DCP- Discharge Planning Updated by [email or web address]: Josi Nava on 11/01/18 4:[address] CM attempted to meet with patient regarding discharge planning. He is currently on BiPAP and unable to speak at this time. CM will continue to follow and assist as needed with discharge planning / needs. DCPIA - Discharge Planning Initial Assessment Updated by [email or web address]: Josi Nava on 11/02/18 6:10 pm * Is the patient Alert and Oriented? Yes * How many steps to enter\exit or inside your home? * PCP Dr. Mcdonald - [place] [facility] * [facility] * Preadmission Environment Home with Family * ADLs Independent * Other Equipment walker, cane * List name and contact numbers for known caregivers / representatives who currently or will assist patient after discharge: Nimisha Maradiaga - - [phone] * Verbal permission to speak to the caregivers and representatives has been obtained from the patient. N/A * Community resources currently utilized None * Additional services required to return to the preadmission environment? No * Can the patient safely return to the preadmission environment? Yes * Has this patient been hospitalized within the prior 30 days at any hospital? No Coverage Notice Reviewer: [email or web address] Kishan Bell Notice Issued Date-Time: 11/06/2018 18:04 Notice Type: Patient Choice Letter Notice Delivered To: Patient Relationship to Patient: Self Residential Real Estate Appraiser Name: Miguel Angel Maradiaga Delivery Method: - Dennise Days: Prior Verbal Notification: Recipient Understood Notice: Recipient Signature: Med Rec Note Co-signed by Attending: Coverage Notice Comment: Reviewer: [email or web address] Kishan Bell Notice Issued Date-Time: 11/06/2018 18:04 Notice Type: IM Admission Notice Notice Delivered To: Patient Relationship to Patient: Self Residential Real Estate Appraiser Name: Miguel Angel Maradiaga Delivery Method: - Dennise Days: Prior Verbal Notification: Recipient Understood Notice: Recipient Signature: Med Rec Note Co-signed by Attending: Coverage Notice Comment: Last DP export: 11/06/18 5:19 p Patient Name: MIGUEL ANGEL MARADIAGA Page [phone] at 1130 All edits/amendments must be made on the electronic document DICTATION DATE: 11/07/181128 PLUG MAKING OPERATOR: SADIE 11/07/181128 RPT#: [id number] DC DATE: STATUS: ADM IN [facility] [address] [place] [address] END OF REPORT
--- NOTE | 2018-11-07 15:32 | MORECARE ---
CASE MANAGEMENT DISCHARGE SUMMARY PATIENT: MIGUEL ANGEL MARADIAGA UNIT: [id number] ADM DATE: 10/29/18 AGE: 73 : [birth year] SEX: M ROOM/BED: D.2109 AUTHOR: RANJEET,DOC PHYSICIAN: REFERRING PHYSICIAN: DAYANNA SANDERS MD DATE OF SERVICE: 11/07/18 Discharge Plan Patient Name: MIGUEL ANGEL MARADIAGA Facility: [facility]:[place] : 1945 Planned Disposition: Inpatient Rehab Anticipated Discharge Date: 11/07/18 Discharge Date: Expected LOS: 9 Initial Reviewer: [email or web address] Initial Review Date: 10/29/2018 Generated: 11/07/18 4:32 pm Comments DCP- Discharge Planning Updated by [email or web address]: Pallavi Bell on 11/06/18 5:[address] Patient is in agreement with #1 [facility] Inpatient Rehab, #2 [facility]. Patient choice for same obtained, faxed order to [facility] Rehab. IMM signed and copies of each provided for patient. Voices no other needs at this time. Pallavi Bell RN CM DCP- Discharge Planning Updated by [email or web address]: Josi Nava on 11/02/18 5:[address] Patient Name: MIGUEL ANGEL MARADIAGA Admission Status: ER Accout number: [id number] Admission Date: 10-29-2018 : 1945 Admission Diagnosis:SEPSIS, UNSPECIFIED ORGANISM Attending: DAYANNA SANDERS Current LOS: 4 Anticipated DC Date: Planned Disposition: Home Primary Insurance: MEDICARE A & B Discharge Planning Comments: CM met with patient at bedside. Patient states he lives at home with his (Nimisha) and plans to return upon discharge. Patient states he does have a walker and cane at home. Patient denies any home health services currently. Patient may need walk test if still requiring 02 upon discharge. CM will continue to follow and assist as needed with discharge planning / needs. Senior Environmental Engineer: Josi Nava DCP- Discharge Planning Updated by [id number]: Josi Nava on 11/01/18 4:[address] CM attempted to meet with patient regarding discharge planning. He is currently on BiPAP and unable to speak at this time. CM will continue to follow and assist as needed with discharge planning / needs. DCPIA - Discharge Planning Initial Assessment Updated by [email or web address]: Josi Nava on 11/02/18 6:10 pm * Is the patient Alert and Oriented? Yes * How many steps to enter\exit or inside your home? * PCP Dr. Mcdonald - [place] [facility] * [facility] * Preadmission Environment Home with Family * ADLs Independent * Other Equipment walker, cane * List name and contact numbers for known caregivers / representatives who currently or will assist patient after discharge: Nimisha Maradiaga - - [phone] * Verbal permission to speak to the caregivers and representatives has been obtained from the patient. N/A * Community resources currently utilized None * Additional services required to return to the preadmission environment? No * Can the patient safely return to the preadmission environment? Yes * Has this patient been hospitalized within the prior 30 days at any hospital? No Coverage Notice Reviewer: [email or web address] Kishan Bell Notice Issued Date-Time: 11/06/2018 18:04 Notice Type: Patient Choice Letter Notice Delivered To: Patient Relationship to Patient: Self Boilermaker Helper Name: Miguel Angel Maradiaga Delivery Method: - Dennise Days: Prior Verbal Notification: Recipient Understood Notice: Recipient Signature: Med Rec Note Co-signed by Attending: Coverage Notice Comment: Reviewer: [email or web address] Kishan Bell Notice Issued Date-Time: 11/06/2018 18:04 Notice Type: IM Admission Notice Notice Delivered To: Patient Relationship to Patient: Self Boilermaker Helper Name: Miguel Angel Maradiaga Delivery Method: - Dennise Days: Prior Verbal Notification: Recipient Understood Notice: Recipient Signature: Med Rec Note Co-signed by Attending: Coverage Notice Comment: Reviewer: [email or web address] - Harris Preciado Notice Issued Date-Time: 11/07/2018 11:55 Notice Type: IM Discharge Notice Notice Delivered To: Patient Relationship to Patient: Boilermaker Helper Name: Delivery Method: HAND - Hand Delivered Dennise Days: Prior Verbal Notification: Recipient Understood Notice: Yes Recipient Signature: Yes Med Rec Note Co-signed by Attending: Coverage Notice Comment: Last DP export: 11/07/18 10:30 a Patient Name: MIGUEL ANGEL MARADIAGA Page [phone] at 1532 All edits/amendments must be made on the electronic document DICTATION DATE: 11/07/181530 MOTOR VEHICLE LICENSE CLERK: SADIE 11/07/181530 RPT#: [id number] DC DATE: STATUS: ADM IN [facility] [address] [place] [address] END OF REPORT
--- NOTE | 2018-11-07 15:49 | MORECARE ---
CASE MANAGEMENT DISCHARGE SUMMARY PATIENT: MIGUEL ANGEL MARADIAGA UNIT: [id number] ADM DATE: 10/29/18 AGE: 73 : [birth year] SEX: M ROOM/BED: D.2109 AUTHOR: RANJEET,DOC PHYSICIAN: REFERRING PHYSICIAN: DAYANNA SANDERS MD DATE OF SERVICE: 11/07/18 Discharge Plan Patient Name: MIGUEL ANGEL MARADIAGA Facility: [facility]:[place] : 1945 Planned Disposition: Inpatient Rehab Anticipated Discharge Date: 11/07/18 Discharge Date: Expected LOS: 9 Initial Reviewer: [id number] Initial Review Date: 10/29/2018 Generated: 11/07/18 4:48 pm Comments DCP- Discharge Planning Updated by [id number]: Harris Preciado on 11/07/18 2:[address] Patient Name: MIGUEL ANGEL MARADIAGA Encounter No: [id number] : 1945 Primary Insurance: MEDICARE A & B Anticipated DC Date: 11-07-2018 Planned Disposition: Inpatient Rehab External Planned Provider: [facility] INPATIENT REHAB DCP follow-up note: CM RECEIVED CALL FROM JACK OF INPATIENT REHAB AT [facility] WHO RECEIVED ORDER AND IS SCREENING FOR INPATIENT REHAB ADMISSION; SHE NEEDED TO KNOW WHEN PT PLANS TO RESUME CHEMOTHERAPY AND WHEN WILL PATIENT BE READY FOR DISCHARGE. CM SPOKE TO PT IN ROOM, PT REPORTS HE IS NOT RESUMING CHEMO THERAPY AND DOES NOT KNOW WHEN THE DOCTOR PLANS TO DISCHARGE HIM. PT DOES WANT TO GO TO INPATIENT REHAB AT [facility]. CM PROVIDED AND DISCUSSED IMPORTANT MESSAGE FROM MEDICARE. CM NOTIFIED JESSICA NAVA OF REQUEST FOR PROJECTED DISCHARGE FROM [facility] INPATIENT REHAB. CM NOTIFED JACK OF INPATIENT REHAB OF PT REPORT OF NO FURTHER CHEMO THERAPY. CM WAITING ADMISSION DETERMINATION FROM [facility] INPATIENT REHAB. JUAN DAVID Iraheta DCP- Discharge Planning Updated by [id number]: Pallavi Bell on 11/06/18 5:[address] Patient is in agreement with [facility], [facility]2 [facility]. Patient choice for same obtained, faxed order to [facility]. IMM signed and copies of each provided for patient. Voices no other needs at this time. Pallavi Bell RN CM DCP- Discharge Planning Updated by [id number]: Josi Nava on 11/02/18 5:[address] Patient Name: MIGUEL ANGEL MARADIAGA Admission Status: ER Accout number: [id number] Admission Date: 10-29-2018 : 1945 Admission Diagnosis:SEPSIS, UNSPECIFIED ORGANISM Attending: DAYANNA SANDERS Current LOS: 4 Anticipated DC Date: Planned Disposition: Home Primary Insurance: MEDICARE A & B Discharge Planning Comments: CM met with patient at bedside. Patient states he lives at home with his (Nimisha) and plans to return upon discharge. Patient states he does have a walker and cane at home. Patient denies any home health services currently. Patient may need walk test if still requiring 02 upon discharge. CM will continue to follow and assist as needed with discharge planning / needs. Unisaw Operator: Josi Nava DCP- Discharge Planning Updated by [id number]: Josi Nava on 11/01/18 4:[address] CM attempted to meet with patient regarding discharge planning. He is currently on BiPAP and unable to speak at this time. CM will continue to follow and assist as needed with discharge planning / needs. DCPIA - Discharge Planning Initial Assessment Updated by [email or web address]: Josi Nava on 11/02/18 6:10 pm * Is the patient Alert and Oriented? Yes * How many steps to enter\exit or inside your home? * PCP Dr. Mcdonald - [place] [facility] * [facility] * Preadmission Environment Home with Family * ADLs Independent * Other Equipment walker, cane * List name and contact numbers for known caregivers / representatives who currently or will assist patient after discharge: Nimisha Maradiaga - - [phone] * Verbal permission to speak to the caregivers and representatives has been obtained from the patient. N/A * Community resources currently utilized None * Additional services required to return to the preadmission environment? No * Can the patient safely return to the preadmission environment? Yes * Has this patient been hospitalized within the prior 30 days at any hospital? No Coverage Notice Reviewer: [id number] - Pallavi Bell Notice Issued Date-Time: 11/06/2018 18:04 Notice Type: Patient Choice Letter Notice Delivered To: Patient Relationship to Patient: Self Philosophy And Religion Instructor Name: Miguel Angel Maradiaga Delivery Method: - Dennise Days: Prior Verbal Notification: Recipient Understood Notice: Recipient Signature: Med Rec Note Co-signed by Attending: Coverage Notice Comment: Reviewer: [id number] - Pallavi Bell Notice Issued Date-Time: 11/06/2018 18:04 Notice Type: IM Admission Notice Notice Delivered To: Patient Relationship to Patient: Self Philosophy And Religion Instructor Name: Miguel Angel Maradiaga Delivery Method: - Dennise Days: Prior Verbal Notification: Recipient Understood Notice: Recipient Signature: Med Rec Note Co-signed by Attending: Coverage Notice Comment: Reviewer: [id number] - Harris Preciado Notice Issued Date-Time: 11/07/2018 11:55 Notice Type: IM Discharge Notice Notice Delivered To: Patient Relationship to Patient: Philosophy And Religion Instructor Name: Delivery Method: HAND - Hand Delivered Dennise Days: Prior Verbal Notification: Recipient Understood Notice: Yes Recipient Signature: Yes Med Rec Note Co-signed by Attending: Coverage Notice Comment: Last DP export: 11/07/18 2:32 p Patient Name: MIGUEL ANGEL MARADIAGA Page [phone] at 1548 All edits/amendments must be made on the electronic document DICTATION DATE: 11/07/18 154 HAND TILE MAKER: SADIE 11/07/18 1548 RPT#: [id number] DC DATE: STATUS: ADM IN [facility] [address] [place] [address] END OF REPORT
[2018-11-07 15:55] VITALS: BP 128/56
[2018-11-07 19:07] LABS: ERYTHROCYTE SEDIMENTATION RATE 81 mm/hr (0-20)
[2018-11-07 20:21] VITALS: BP 135/70
[2018-11-08 01:31] VITALS: BP 131/74
[2018-11-08 04:57] LABS: BASOPHILS 0.3 % (0-2); EOSINOPHILS 0 % (0-7); HEMATOCRIT 26.3 % (42.0-54.0); IMMATURE GRANULOCYTES 4.8 % (0-5); LYMPHOCYTES 10.5 % (15-50); MCH 29.1 pg (26.0-34.0); MCHC 34.2 g/dL (31.0-37.0); MCV 85.1 fL (80.0-100.0); MEAN PLATELET VOLUME 9.2 fL (7.4-10.4); MONOCYTES 22.8 % (2-11); NEUTROPHILS 61.6 % (40-80); PLATELET COUNT 235 10x3/uL (130-400); RBC 3.09 10x6/uL (4.20-6.10); RDW 18.6 % (11.5-14.5); WBC 7.6 10x3/uL (4.8-10.8)
[2018-11-08 05:25] LABS: ANION GAP 12.7 mmol/L (8-16); CARBON DIOXIDE 27.6 mmol/L (21.0-32.0); POTASSIUM - SERUM 3.3 mmol/L (3.5-5.1)
[2018-11-08 05:40] LABS: CREATININE - SERUM 1.2 mg/dL (0.6-1.3)
[2018-11-08 06:19] VITALS: BP 140/73
[2018-11-08 09:44] VITALS: BP 112/69
--- NOTE | 2018-11-08 10:56 | MORECARE ---
CASE MANAGEMENT DISCHARGE SUMMARY PATIENT: MIGUEL ANGEL MARADIAGA UNIT: [id number] ADM DATE: 10/29/18 AGE: 73 : [birth year] SEX: M ROOM/BED: D.2105 AUTHOR: ANA POLLACK PHYSICIAN: REFERRING PHYSICIAN: DAYANNA SANDERS MD DATE OF SERVICE: 11/08/18 Discharge Plan Patient Name: MIGUELA NGEL MARADIAGA Facility: [facility]:[place] : 1945 Planned Disposition: Inpatient Rehab Anticipated Discharge Date: 11/08/18 Discharge Date: Expected LOS: 10 Initial Reviewer: [email or web address] Initial Review Date: 10/29/2018 Generated: 11/08/18 11:56 am Comments DCP- Discharge Planning Updated by [id number]: Harris Preciado on 11/08/18 9:[address] Patient Name: MIGUEL ANGEL MARADIAGA Encounter No: [id number] : 1945 Primary Insurance: MEDICARE A & B Anticipated DC Date: 11-07-2018 Planned Disposition: Inpatient Rehab External Planned Provider: [facility] INPATIENT REHAB DCP follow-up note: CM SPOKE TO IRVIN OF INPATIENT REHAB, THEY PLAN TO ACCEPT PT FOR REHAB. PT NOTIFIED, IN AGREEMENT WITH DISCHARGE TO INPATIENT REHAB. JESSICA NAVA NOTIFIED. [facility] INPATIENT REH[facility] TO CONTACT MED 2 NURSE WITH ROOM NUMBER WHEN READY TO ACCEPT PT AND NURSE REPORT. . Harris Preciado, CASE MANAGEMENT DCP- Discharge Planning Updated by [id number]: Harris Preciado on 11/07/18 2:[address] Patient Name: MIGUEL ANGEL MARADIAGA Encounter No: [id number] : 1945 Primary Insurance: MEDICARE A & B Anticipated DC Date: 11-07-2018 Planned Disposition: Inpatient Rehab External Planned Provider: [facility] INPATIENT [facility] DCP follow-up note: CM RECEIVED CALL FROM JACK OF INPATIENT REH[facility] AT [place] WHO RECEIVED ORDER AND IS SCREENING FOR INPATIENT REHAB ADMISSION; SHE NEEDED TO KNOW WHEN PT PLANS TO RESUME CHEMOTHERAPY AND WHEN WILL PATIENT BE READY FOR DISCHARGE. CM SPOKE TO PT IN ROOM, PT REPORTS HE IS NOT RESUMING CHEMO THERAPY AND DOES NOT KNOW WHEN THE DOCTOR PLANS TO DISCHARGE HIM. PT DOES WANT TO GO TO INPATIENT REHAB AT [facility]. CM PROVIDED AND DISCUSSED IMPORTANT MESSAGE FROM MEDICARE. CM NOTIFIED JESSICA NAVA OF REQUEST FOR PROJECTED DISCHARGE FROM [facility] INPATIENT RE[facility]. CM NOTIFED JACK OF INPATIENT REHAB OF PT REPORT OF NO FURTHER CHEMO THERAPY. CM WAITING ADMISSION DETERMINATION FROM [facility] INPATIENT RE[facility]. Harris Preciado, JUAN DAVID CHILDRESSDENG DCP- Discharge Planning Updated by [email or web address]: Pallavi Bell on 11/06/18 5:[address] Patient is in agreement with #1 [facility], #2 [facility]. Patient choice for same obtained, faxed order to [facility]. IMM signed and copies of each provided for patient. Voices no other needs at this time. Pallavi Bell RN CM DCP- Discharge Planning Updated by [id number]: Josi Nava on 11/02/18 5:[address] Patient Name: MIGUEL ANGEL MARADIAGA Admission Status: ER Accout number: [id number] Admission Date: 10-29-2018 : 1945 Admission Diagnosis:SEPSIS, UNSPECIFIED ORGANISM Attending: DAYANNA SANDERS Current LOS: 4 Anticipated DC Date: Planned Disposition: Home Primary Insurance: MEDICARE A & B Discharge Planning Comments: CM met with patient at bedside. Patient states he lives at home with his (Nimisha) and plans to return upon discharge. Patient states he does have a walker and cane at home. Patient denies any home health services currently. Patient may need walk test if still requiring 02 upon discharge. CM will continue to follow and assist as needed with discharge planning / needs. Pc Installation Engineer: Josi Nava DCP- Discharge Planning Updated by [email or web address]: Josi Nava on 11/01/18 4:[address] CM attempted to meet with patient regarding discharge planning. He is currently on BiPAP and unable to speak at this time. CM will continue to follow and assist as needed with discharge planning / needs. DCPIA - Discharge Planning Initial Assessment Updated by [email or web address]: Josi Nava on 11/02/18 6:10 pm * Is the patient Alert and Oriented? Yes * How many steps to enter\exit or inside your home? * PCP Dr[facility] Mcdonald - [place] [facility] * [facility] * Preadmission Environment Home with Family * ADLs Independent * Other Equipment walker, cane * List name and contact numbers for known caregivers / representatives who currently or will assist patient after discharge: Nimisha Maradiaga - - [phone] * Verbal permission to speak to the caregivers and representatives has been obtained from the patient. N/A * Community resources currently utilized None * Additional services required to return to the preadmission environment? No * Can the patient safely return to the preadmission environment? Yes * Has this patient been hospitalized within the prior 30 days at any hospital? No Coverage Notice Reviewer: [id number] Kishan Bell Notice Issued Date-Time: 11/06/2018 18:04 Notice Type: Patient Choice Letter Notice Delivered To: Patient Relationship to Patient: Self Associate Professor Of English Name: Miguel Angel Maradiaga Delivery Method: - Dennise Days: Prior Verbal Notification: Recipient Understood Notice: Recipient Signature: Med Rec Note Co-signed by Attending: Coverage Notice Comment: Reviewer: [id number] Kishan Bell Notice Issued Date-Time: 11/06/2018 18:04 Notice Type: IM Admission Notice Notice Delivered To: Patient Relationship to Patient: Self Associate Professor Of English Name: Miguel Angel Maradiaga Delivery Method: - Dennise Days: Prior Verbal Notification: Recipient Understood Notice: Recipient Signature: Med Rec Note Co-signed by Attending: Coverage Notice Comment: Reviewer: [id number] - Harris Preciado Notice Issued Date-Time: 11/07/2018 11:55 Notice Type: IM Discharge Notice Notice Delivered To: Patient Relationship to Patient: Associate Professor Of English Name: Delivery Method: HAND - Hand Delivered Dennise Days: Prior Verbal Notification: Recipient Understood Notice: Yes Recipient Signature: Yes Med Rec Note Co-signed by Attending: Coverage Notice Comment: Last DP export: 11/07/18 2:48 p Patient Name: MIGUEL ANGEL MARADIAGA Page [phone] at 1056 All edits/amendments must be made on the electronic document DICTATION DATE: 11/08/18 1056 CAPACITOR ASSEMBLER: SADIE 11/08/18 105 RPT#: [id number] DC DATE: STATUS: ADM IN [facility] [address] [place] [address] END OF REPORT
[2018-11-08] MEDS ORDERED: AMIODARONE HCL200 MG PO (11:05)
[2018-11-08] MEDS ORDERED: LASIX40 MG PO (11:06)
[2018-11-08] MEDS ORDERED: MEGACE40 MG PO (11:06)
[2018-11-08] MEDS ORDERED: K-DUR20 MEQ PO (11:07)
--- NOTE | 2018-11-09 07:41 | MORECARE ---
CASE MANAGEMENT DISCHARGE SUMMARY PATIENT: MIGUEL ANGEL MARADIAGA UNIT: [id number] ADM DATE: 10/29/18 AGE: 73 : [birth year] SEX: M ROOM/BED: D.210 AUTHOR: ANA POLLACK PHYSICIAN: REFERRING PHYSICIAN: DAYANNA SANDERS MD DATE OF SERVICE: 11/09/18 Discharge Plan Patient Name: MIGUEL ANGEL MARADIAGA Facility: [facility]:[place] : 1945 Planned Disposition: Inpatient Rehab Anticipated Discharge Date: 11/08/18 Discharge Date: 11/08/2018 Expected LOS: 10 Initial Reviewer: [email or web address] Initial Review Date: 10/29/2018 Generated: 11/09/18 8:40 am Comments DCP- Discharge Planning Updated by [id number]: Harris Preciado on 11/08/18 9:[address] Patient Name: MIGUEL ANGEL MARADIAGA Encounter No: [id number] : 1945 Primary Insurance: MEDICARE A & B Anticipated DC Date: 11-07-2018 Planned Disposition: Inpatient Rehab External Planned Provider: [facility] INPATIENT REH[facility] DCP follow-up note: CM SPOKE TO IRVIN OF INPATIENT REHAB, THEY PLAN TO ACCEPT PT FOR REHAB. PT NOTIFIED, IN AGREEMENT WITH DISCHARGE TO INPATIENT REHAB. JESSICA NAVA NOTIFIED. [facility] INPATIENT REHAB TO CONTACT MED 2 NURSE WITH ROOM NUMBER WHEN READY TO ACCEPT PT AND NURSE REPORT. . Harris Preciado, CASE MANAGEMENT DCP- Discharge Planning Updated by [id number]: Harris Preciado on 11/07/18 2:[address] Patient Name: MIGUEL ANGEL MARADIAGA Encounter No: [id number] : 1945 Primary Insurance: MEDICARE A & B Anticipated DC Date: 11-07-2018 Planned Disposition: Inpatient Rehab External Planned Provider: [facility] INPATIENT REHAB DCP follow-up note: CM RECEIVED CALL FROM JACK OF INPATIENT REHAB AT [place] WHO RECEIVED ORDER AND IS SCREENING FOR INPATIENT REHAB ADMISSION; SHE NEEDED TO KNOW WHEN PT PLANS TO RESUME CHEMOTHERAPY AND WHEN WILL PATIENT BE READY FOR DISCHARGE. CM SPOKE TO PT IN ROOM, PT REPORTS HE IS NOT RESUMING CHEMO THERAPY AND DOES NOT KNOW WHEN THE DOCTOR PLANS TO DISCHARGE HIM. PT DOES WANT TO GO TO INPATIENT REHAB AT [facility]. CM PROVIDED AND DISCUSSED IMPORTANT MESSAGE FROM MEDICARE. CM NOTIFIED JESSICA NAVA OF REQUEST FOR PROJECTED DISCHARGE FROM [facility] INPATIENT REHAB. CM NOTIFED JACK OF INPATIENT REHAB OF PT REPORT OF NO FURTHER CHEMO THERAPY. CM WAITING ADMISSION DETERMINATION FROM [facility] INPATIENT RE[facility]. JUAN DAVID Iraheta DCP- Discharge Planning Updated by [id number]: Pallavi Bell on 11/06/18 5:[address] Patient is in agreement with [facility]1 [facility], #2 [facility]Rehab. Patient choice for same obtained, faxed order to [facility]. IMM signed and copies of each provided for patient. Voices no other needs at this time. Pallavi Bell RN CM DCP- Discharge Planning Updated by [email or web address]: Josi Nava on 11/02/18 5:[address] Patient Name: MIGUEL ANGEL MARADIAGA Admission Status: ER Accout number: [id number] Admission Date: 10-29-2018 : 1945 Admission Diagnosis:SEPSIS, UNSPECIFIED ORGANISM Attending: DAYANNA SANDERS Current LOS: 4 Anticipated DC Date: Planned Disposition: Home Primary Insurance: MEDICARE A & B Discharge Planning Comments: CM met with patient at bedside. Patient states he lives at home with his (Nimisha) and plans to return upon discharge. Patient states he does have a walker and cane at home. Patient denies any home health services currently. Patient may need walk test if still requiring 02 upon discharge. CM will continue to follow and assist as needed with discharge planning / needs. High Raw Sugar Boiler: Josi Nava DCP- Discharge Planning Updated by [id number]: Josi Nava on 11/01/18 4:[address] CM attempted to meet with patient regarding discharge planning. He is currently on BiPAP and unable to speak at this time. CM will continue to follow and assist as needed with discharge planning / needs. DCPIA - Discharge Planning Initial Assessment Updated by [email or web address]: Josi Nava on 11/02/18 6:10 pm * Is the patient Alert and Oriented? Yes * How many steps to enter\exit or inside your home? * [facility] * [facility] * Preadmission Environment Home with Family * ADLs Independent * Other Equipment walker, cane * List name and contact numbers for known caregivers / representatives who currently or will assist patient after discharge: Nimisha Maradiaga - [facility] - [phone] * Verbal permission to speak to the caregivers and representatives has been obtained from the patient. N/A * Community resources currently utilized None * Additional services required to return to the preadmission environment? No * Can the patient safely return to the preadmission environment? Yes * Has this patient been hospitalized within the prior 30 days at any hospital? No Coverage Notice Reviewer: [id number] Kishan Bell Notice Issued Date-Time: 11/06/2018 18:04 Notice Type: Patient Choice Letter Notice Delivered To: Patient Relationship to Patient: Self Slack Cooper Name: Miguel Angel Maradiaga Delivery Method: - Dennise Days: Prior Verbal Notification: Recipient Understood Notice: Recipient Signature: Med Rec Note Co-signed by Attending: Coverage Notice Comment: Reviewer: [id number] Kishan Bell Notice Issued Date-Time: 11/06/2018 18:04 Notice Type: IM Admission Notice Notice Delivered To: Patient Relationship to Patient: Self Slack Cooper Name: Miguel Angel Maradiaga Delivery Method: - Dennise Days: Prior Verbal Notification: Recipient Understood Notice: Recipient Signature: Med Rec Note Co-signed by Attending: Coverage Notice Comment: Reviewer: [id number] - Harris Preciado Notice Issued Date-Time: 11/07/2018 11:55 Notice Type: IM Discharge Notice Notice Delivered To: Patient Relationship to Patient: Slack Cooper Name: Delivery Method: HAND - Hand Delivered Dennise Days: Prior Verbal Notification: Recipient Understood Notice: Yes Recipient Signature: Yes Med Rec Note Co-signed by Attending: Coverage Notice Comment: Last DP export: 11/08/18 9:56 a Patient Name: MIGUEL ANGEL MARADIAGA Page 42128 at 0741 All edits/amendments must be made on the electronic document DICTATION DATE: 11/09/18739 PROJECT DEVELOPMENT ENGINEER: SADIE 11/09/18739 RPT#: [id number] DC DATE:11/08/18 STATUS: DIS IN [facility] [address] [place] [address] END OF REPORT
== END 2018-11-08 16:04 | DRG 871 ==
LOC: D.ER 11:40 → D.EDHOLD 15:28 → D.ICU 15:28 → D.M2 11-02 21:20
PROVIDERS: Emergency Medicine; Family Medicine; ADMIT Internal Medicine Nephrology
DX: A41.9 Sepsis, unspecified organism (principal); J96.01 Acute respiratory failure with hypoxia; J18.9 Pneumonia, unspecified organism; N17.9 Acute kidney failure, unspecified; C81.90 Hodgkin lymphoma, unspecified, unspecified site; E87.2 Acidosis; J98.11 Atelectasis; J44.0 Chronic obstructive pulmonary disease with (acute) lower respiratory infection; I24.8 Other forms of acute ischemic heart disease; H00.013 Hordeolum externum right eye, unspecified eyelid; D64.9 Anemia, unspecified; R00.0 Tachycardia, unspecified; I48.91 Unspecified atrial fibrillation; I25.10 Atherosclerotic heart disease of native coronary artery without angina pectoris; I10 Essential (primary) hypertension; K59.00 Constipation, unspecified; E87.6 Hypokalemia; D70.2 Other drug-induced agranulocytosis; T45.1X5A Adverse effect of antineoplastic and immunosuppressive drugs, initial encounter

== ENCOUNTER 2018-11-08 14:59 | Inpatient (IN) | payer MEDICARE, BC, OTHER ==
[~2018-11-08] VITALS: Ht 160 cm; Wt 73.5 kg
[~2018-11-08 14:59] MED LIST: ALEVE220 MG PO; AMIODARONE HCL200 MG PO; HUMIRA SC; K-DUR20 MEQ PO; LASIX40 MG PO; LIPITOR20 MG PO; MEGACE40 MG PO; VITAMIN D3400 UNI1 PO
--- NOTE | 2018-11-08 16:12 | NUR ---
PT ON REHAB UNIT CAME VIA WHEELCHAIR WITH HOSPITAL STAFF. CALL LIGHT IN REACH.
--- NOTE | 2018-11-08 16:34 | NUR ---
ALERT AND ORIENTED. INFUSA PORT R CHEST. TALON UE EDEMA GREATER ON L ARM. TALON LE EDEMA 2+ feet. OLD INJURY L ANKLE SURGERY/HEALED BUT INDENTED. ABD DISTENDED NONTENDER.NO SKIN BREAKDOWN NOTED.
[2018-11-08 16:48] VITALS: BP 137/83
--- NOTE | 2018-11-08 17:14 | NUR ---
ARTHRITIS/HANDS DEFORMED.
[2018-11-09 06:21] LABS: BASOPHILS 0.3 % (0-2); EOSINOPHILS 0 % (0-7); HEMATOCRIT 28.2 % (42.0-54.0); HEMOGLOBIN 9.5 g/dL (13.5-17.5); IMMATURE GRANULOCYTES 2.2 % (0-5); LYMPHOCYTES 9.8 % (15-50); MCH 29.1 pg (26.0-34.0); MCHC 33.7 g/dL (31.0-37.0); MCV 86.5 fL (80.0-100.0); MEAN PLATELET VOLUME 9.1 fL (7.4-10.4); MONOCYTES 17.1 % (2-11); NEUTROPHILS 70.6 % (40-80); PLATELET COUNT 258 10x3/uL (130-400); RBC 3.26 10x6/uL (4.20-6.10); RDW 18.5 % (11.5-14.5); WBC 8.9 10x3/uL (4.8-10.8)
[2018-11-09 06:36] LABS: ANION GAP 13.6 mmol/L (8-16); CALCIUM 8.1 mg/dL (8.5-10.1); CARBON DIOXIDE 27.9 mmol/L (21.0-32.0); CREATININE - SERUM 1.1 mg/dL (0.6-1.3); POTASSIUM - SERUM 3.5 mmol/L (3.5-5.1)
--- NOTE | 2018-11-09 07:22 | NUR ---
ALERT AND ORIENTED. NO C/O PAIN. RESP EVEN AND UNLABORED.
[2018-11-09 08:00] VITALS: BP 99/62
--- NOTE | 2018-11-09 08:15 | NUR ---
PT RESTING IN BED WITH EYES OPEN CALL LIGHT IN REACH WILL MONITER
[2018-11-09 09:56] VITALS: Ht 160 cm; Wt 73.5 kg
--- NOTE | 2018-11-09 12:19 | RHP ---
PATIENT: MEAGHAN MARADIAGA MEDICAL RECORD: [id number] ACCOUNT: [id number] LOCATION:[facility]17 : 49 ADMISSION DATE: 11/08/18 REHABILITATION HISTORY AND PHYSICAL EXAMINATION POST ADMISSION PHYSICIAN EXAMINATION POST-ADMISSION PHYSICAL EXAMINATION AND HISTORY AND PHYSICAL DATE OF ADMISSION: 11/08/2018 ADMITTING DIAGNOSIS: Chemotherapy-induced myopathy. HISTORY OF PRESENT ILLNESS: The patient is a 73-year-old patient, who is admitted to rehab with a working diagnosis of chemo myopathy. Apparently, he was admitted to the acute hospital after presenting in the ED with complaints of unable to keep anything down. He was weak. He has had chemo last week. He was feeling lightheaded, had increased shortness of breath and weakness, also had been running some fever. He recently had a right eye infection with swelling and drainage. He completed therapy. In the ED, he was noted to be afebrile, but had AFib. He has had no history of this in the past. His white count was 0.4. Creatinine was 1.6. VQ scan was negative. He has got a diagnosis of Hodgkin lymphoma. He had been receiving chemo at the [facility] in [place]. He was admitted to ICU for increased dyspnea, rapid ventricular rate, and hypoxia. He was transferred out of the ICU on 11/02 to the medical floor. He was found to have sepsis secondary to gram-positive bacteremia. Oncology was consulted secondary to his neutropenia. He was seen and followed by pulmonary during his stay. He was noted to have bibasilar pneumonia and bilateral moderate pleural effusions, questionable COPD. He has been requiring increased amounts of supplemental O2, but was weaned down to 4 liters. At this time, he is wearing BiPAP. Cardiology was consulted for his AFib and rapid ventricular response. He has been treated with medication, converted to a sinus rhythm. Currently using supplemental O2 with no home O2 at home. BiPAP also at bedtime. He has been on telemetry with his recent AFib with rapid ventricular response, proximal weakness, increased dyspnea on exertion, impaired mobility and decreased muscle strength, labile hypertension, and electrolyte abnormalities. These are all discharge barriers to him going home at this time. He is due for chemo treatment, but has declined it at this time secondary to current illness and circumstance. He lives at home with his . He was independent with mobility and ADLs, but does have a walker and a cane at home. He and his family would like him to return home at his prior level of functioning or better if possible. Comorbidities in this patient include sepsis secondary to gram-positive bacteremia, hypoxia, non-Hodgkin lymphoma, neutropenia, AFib with rapid ventricular response, bilateral pleural effusions, right eye cellulitis, hypertension, COPD, coronary artery disease, anemia, hypokalemia, weakness, fatigue, depression, debility, self-care deficits, and back pain. PAST MEDICAL HISTORY: Significant for hypertension, coronary artery disease, COPD, prostate cancer, Hodgkin's lymphoma, neutropenia, diarrhea, rheumatoid arthritis, tobacco use. PAST SURGICAL HISTORY: Includes prostatectomy and elbow surgery. ALLERGIES: No known drug allergies. CURRENT MEDICATIONS: Include Dilaudid, he is going to get for severe pain on a HISTORY AND PHYSICAL [id number] MARADIAGA,MEAGHAN L scale up to 10. He is on Bronson 10/325 one tab every 8 hours p.r.n., potassium 20 mEq daily, naproxen 250 mg daily, furosemide 40 mg daily, vitamin D 400 units daily, Lipitor 20 mg daily, acetaminophen 650 every 6 hours p.r.n., Megace 40 mg b.i.d., and amiodarone 200 mg b.i.d. HABITS: No current alcohol or tobacco use. FAMILY HISTORY: Noncontributory. SOCIAL HISTORY: The patient hopes to return back home and get back to his prior level of functioning. REVIEW OF SYSTEMS: GENERAL: Does complain of weakness and fatigue. HEENT: Denies cold, cough, or congestion. CARDIOVASCULAR: Denies any chest pain at this time. PHYSICAL EXAMINATION: VITAL SIGNS: Stable, afebrile. GENERAL: A well-developed gentleman, in no acute distress upon exam. HEENT: Normocephalic and atraumatic. Mucosa moist. NECK: Supple. No lymphadenopathy. LUNGS: Clear at this time in the upper vincent. He does have decreased breath sounds in the bases. CARDIOVASCULAR: Regular rate and rhythm. No murmurs, rubs or gallops. ABDOMEN: Benign. EXTREMITIES: No clubbing, cyanosis or edema. NEUROLOGIC: Does have noted weakness. LABORATORY DATA: White count is 8.9, H&H of 9.5 and 28.2, and platelet count was 258. Sodium 130, potassium 3.5, BUN and creatinine of 9 and 1.1, and blood sugar is noted to be 90. ASSESSMENT: This is a 73-year-old gentleman admitted to the rehab with a working diagnosis of chemo-induced myopathy. The patient has potential to make improvement. We will institute the following multidisciplinary therapies including, not limited to, physical, occupational, respiratory, speech, nutritional services, prosthetics and orthotics. Given his complex medical condition and risks for more complications, rehabilitation services cannot be provided at a low level of care such as a [facility] facility. PLAN: 1. Admit to [facility] for intensive inpatient therapy to include the following disciplines: A. Physical therapy to improve gait, all transfer skills and bed mobility to a modified independent level. B. Occupational therapy to improve activities of daily living to a modified independent level. C. Case management to assist with discharge planning and placement options. D. Nutrition to assist with nutritional needs. E. Rehabilitation nursing to assist in monitoring the patient's underlying medical conditions and to assist with any type of bowel or bladder management. 2. The patient's current medications and medical care will be continued. 3. The patient will be placed on standard fall precautions. 4. The patient's estimated length of stay is approximately 7-10 days. HISTORY AND PHYSICAL [id number] MEAGHAN MARADIAGA 5. We will discuss this patient during care team staff meeting this week. TRANSINT:[id number] Voice Confirmation ID: [id number] DOCUMENT ID: [id number] NICANOR notes whether there has been none or any medical/functional change since admission: - No change since prescreen. NICANOR attests patient continues to be appropriate for IRF: - Continues to be appropriate. ERNIE KEY MD at 1219 CC: [id number] DICTATION DATE: 11/09/18 0900 DIRECTOR OF PRODUCT DESIGN: 11/09/18 0950 ADM IN [facility] [address] [place] [address]
--- NOTE | 2018-11-09 17:12 | NUR ---
PT RESTING IN BED WITH EYES OPEN CALL LIGHT IN REACH WILL MONITER
--- NOTE | 2018-11-10 01:22 | NUR ---
PT ASLEEP NO NEEDS NOTED FLUIDS AND CALL LIGHT WITHIN REACH
[2018-11-10 08:00] VITALS: BP 128/64
--- NOTE | 2018-11-10 17:46 | NUR ---
PT RESTING IN BED WITH EYES OPEN CALL LIGHT IN REACH NO PROBLEMS WILL MONITER
[2018-11-10 19:58] VITALS: BP 111/64
--- NOTE | 2018-11-10 20:00 | NUR ---
PATIENT RECEIVED SITTING UP IN WHEELCHAIR AT BEDSIDE. PATIENT ASSESSMENT & VITAL SIGNS DONE. PATIENT CALL LIGHT & SIDE TABLE WITHIN REACH. WILL CONTINUE TO MONITOR.
--- NOTE | 2018-11-11 02:41 | NUR ---
PATIENT AWAKE & SITTING UP IN THE BED. PATIENT URINAL EMPTIED & BACK AT BED SIDE. ALARM ON. CALL LIGHT WITHIN REACH. WILL CONTINUE TO MONITOR.
[2018-11-11 05:42] LABS: EOSINOPHILS 0 % (0-7); HEMATOCRIT 26.7 % (42.0-54.0); HEMOGLOBIN 8.9 g/dL (13.5-17.5); IMMATURE GRANULOCYTES 1.4 % (0-5); LYMPHOCYTES 16.6 % (15-50); MCH 29.3 pg (26.0-34.0); MCHC 33.3 g/dL (31.0-37.0); MCV 87.8 fL (80.0-100.0); MEAN PLATELET VOLUME 9.4 fL (7.4-10.4); MONOCYTES 13.4 % (2-11); NEUTROPHILS 67.6 % (40-80); RBC 3.04 10x6/uL (4.20-6.10); RDW 18.2 % (11.5-14.5); WBC 7.8 10x3/uL (4.8-10.8)
[2018-11-11 05:47] LABS: ANION GAP 14.3 mmol/L (8-16); CALCIUM 7.7 mg/dL (8.5-10.1); CARBON DIOXIDE 25.6 mmol/L (21.0-32.0); CREATININE - SERUM 1.2 mg/dL (0.6-1.3); POTASSIUM - SERUM 3.9 mmol/L (3.5-5.1)
[2018-11-11 05:49] LABS: PLATELET COUNT 334 10x3/uL (130-400)
[2018-11-11 08:00] VITALS: BP 115/51
--- NOTE | 2018-11-11 08:00 | NUR ---
PATIENT IS ALERT/ORIENT. SITTING UP IN BED FOR BREAKFAST. CALL LIGHT WITHIN REACH. VOICES NO NEEDS AT THIS TIME. WILL CONTINUE WITH PLAN OF CARE
--- NOTE | 2018-11-11 10:37 | NUR ---
PATIENT IN REHAB ROOM, WORKING WITH PHYSICAL THERPIST. DENIES ANY PAIN/DISC AT THIS TIME.
--- NOTE | 2018-11-11 12:00 | NUR ---
PATIENT SITTING UP IN WHEELCHAIR AT BEDSIDE TO EAT LUNCH
--- NOTE | 2018-11-11 16:40 | NUR ---
PATIENT RESTING IN BED AFTER THERAPY. VISITORS IN ROOM. VOICES NO NEEDS AT THIS TIME.
--- NOTE | 2018-11-11 19:12 | NUR ---
PATIENT IS SITTING UP IN HIS WHEELCHAIR WHILE WATCHING TV. CALL LIGHT IS IN REACH.
--- NOTE | 2018-11-11 20:00 | NUR ---
PT NOTED SITTING IN WC IN HIS ROOM WATCHING TV. ALERT AND ORIENTED X 3. DENIES ACUTE DISCOMFORT AT THIS TIME. 350CC EMPTIED FROM URINAL. RIGHT CHEST PORT NOTED. O2 IS ON @ 2LPM PER NC. NO SOB NOTED. PT ASSISTED INTO BED WITH SBA. SR'S ARE UP X 2. CALL LIGHT AND BESIDE TABLE ARE WITHIN EASY REACH.
[2018-11-11 21:06] VITALS: BP 130/70
--- NOTE | 2018-11-11 23:21 | NUR ---
PT IS RESTING QUIETLY IN BED WITH EYES CLOSED. RESPS ARE EVEN AND UNLABORED. NO ACUTE DISTRESS NOTED.
--- NOTE | 2018-11-12 03:11 | NUR ---
RESTING IN BED WITH EYES CLOSED.
--- NOTE | 2018-11-12 06:15 | NUR ---
PT IS RESTING QUIETLY IN BED WITH EYES CLOSED.NO DISTRESS NOTED.
--- NOTE | 2018-11-12 07:30 | NUR ---
PT RESTING QUIETLY. CALL LIGHT IN REACH. NO SIGNS OF DISTRESS OR PAIN. BED IN LOW POSITION. SIDE RAILS X2. WILL CONTINUE TO MONITOR.
[2018-11-12 08:00] VITALS: BP 107/54
--- NOTE | 2018-11-12 08:19 | NUR ---
PT RESTING QUIETLY.CALL LIGHT IN REACH. NO SIGNS OF DISTRESS OR PAIN. O2 VIA NC AT 2L. BED IN LOW POSITION. SIDE RAILS X2. WILL CONTINUE TO MONITOR.
--- NOTE | 2018-11-12 11:01 | NUR ---
PT STATES FEELING CONGESTED. NOTE LEFT FOR DR. KEY. PT STATES HE CAN HARDLY BREATH O2 STAT 95% AND O2 ON VIA NC AT 3L. WILL CONTINUE TO MONITOR. CALL LIGHT IN REACH.
--- NOTE | 2018-11-12 14:15 | NUR ---
PT IN THERAPY DENIES NEEDS
--- NOTE | 2018-11-12 17:24 | NUR ---
PT SITTING UP IN WHEELCHAIR. CALL LIGHT IN REACH. PT DENIES NEEDS OR PAIN AT THIS TIME. WILL CONTINUE TO MONITOR.
--- NOTE | 2018-11-12 19:24 | NUR ---
PATIENT IS RESTING IN HIS BED AND HAS A VISITOR. BED IS DOWN LOW AND CALL LIGHT IS IN REACH.
--- NOTE | 2018-11-12 21:29 | NUR ---
PT IS RESTING IN BED WATCHING TV. ALERT AND ORIENTED X 3. DENIES ACUTE DISCOMFORT AT THIS TIME. NO NEEDS VOICED. USING URINAL PRN. VSS. O2 IS ON @ 2LPM PER NC. SR'S ARE UP X 2 IN BED. CALL LIGHT AND BEDSIDE TABLE ARE WITHIN EASY REACH.
--- NOTE | 2018-11-13 00:01 | NUR ---
PT RESTING QUIETLY IN BED WITH EYES CLOSED. RESPS ARE EVEN AND UNLABORED. NO ACUTE DISTRESS NOTED.
--- NOTE | 2018-11-13 03:23 | NUR ---
PT RESTING IN BED WITH EYES CLOSED. USING URINAL PRN.
--- NOTE | 2018-11-13 07:30 | NUR ---
RECEIVED REPORT. LYING IN BED ALERT AND ORIENTED X4. DENIES ANY NEEDS OR PAIN. RR EVEN AND UNLABORED. CALL LIGHT WITHIN REACH, FALL PRECAUTIONS IN PLACE
[2018-11-13 09:14] VITALS: BP 134/60
--- NOTE | 2018-11-13 13:10 | NUR ---
SITTING UP IN W/C WATCHING TV. DENIES ANY NEEDS OR PAIN. CONTINUES ON 2L VIA NC. CALL LIGHT WITHIN REACH, FALL PRECAUTIONS IN PLACE
--- NOTE | 2018-11-13 15:12 | NUR ---
SITTING UP IN W/C VISITING WITH . DENIES ANY NEEDS OR PAIN
--- NOTE | 2018-11-13 17:52 | NUR ---
SITTING UP IN BED EATING DINNER. DENIES ANY NEEDS OR PAIN. CALL LIGHT WITHIN REACH, FALL PRECAUTIONS IN PLACE
[2018-11-13 17:57] VITALS: BP 139/80
--- NOTE | 2018-11-13 18:52 | NUR ---
PATIENT IS RESTING IN HIS BED. STATES HE WOULD LIKE A PAIN PILL WITH HIS NIGHT TIME MEDICATIONS. BED IS DOWN LOW WITH SIDE RAILS UP X2. CALL LIGHT IS IN REACH.
--- NOTE | 2018-11-13 21:16 | NUR ---
PT IS RESTING IN BED WATCHING TV. ALERT AND ORIENTED X 3. DENIES ACUTE PAIN OR DISCOMFORT AT THIS TIME. NO NEEDS VOICED. USING URINAL PRN. O2 IS ON @ 2LPM PER NC. NO SOB NOTED. SR'S ARE UP X 2 IN BED. CALL LIGHT AND BEDSIDE TABLE ARE WITHIN EASY REACH.
--- NOTE | 2018-11-14 00:01 | NUR ---
PT RESTING IN BED WATCHING TV. NO NEEDS VOICED.
--- NOTE | 2018-11-14 03:06 | NUR ---
PT RESTING IN BED WITH EYES CLOSED.
--- NOTE | 2018-11-14 05:56 | NUR ---
PT RESTING IN BED WITH EYES CLOSED. NO DISTRESS NOTED. URINAL EMPTIED.
[2018-11-14 06:56] LABS: ANION GAP 14.6 mmol/L (8-16); CALCIUM 8.4 mg/dL (8.5-10.1); CARBON DIOXIDE 24.2 mmol/L (21.0-32.0); CREATININE - SERUM 1.1 mg/dL (0.6-1.3); POTASSIUM - SERUM 3.8 mmol/L (3.5-5.1)
--- NOTE | 2018-11-14 07:39 | NUR ---
SITTING UP IN WC IN ROOM WAITING ON BREAKFAST. DENIES NEEDS OR INCREASED SOB. CALL LIGHT IN REACH
[2018-11-14 07:48] LABS: BASOPHILS 0.8 % (0-2); EOSINOPHILS 0.1 % (0-7); HEMATOCRIT 27.2 % (42.0-54.0); IMMATURE GRANULOCYTES 0.3 % (0-5); LYMPHOCYTES 13.3 % (15-50); MCH 29.7 pg (26.0-34.0); MCHC 33.1 g/dL (31.0-37.0); MCV 89.8 fL (80.0-100.0); MEAN PLATELET VOLUME 9.1 fL (7.4-10.4); MONOCYTES 10.2 % (2-11); NEUTROPHILS 75.3 % (40-80); RBC 3.03 10x6/uL (4.20-6.10); RDW 18.1 % (11.5-14.5); WBC 11.3 10x3/uL (4.8-10.8)
[2018-11-14 07:50] LABS: PLATELET COUNT 436 10x3/uL (130-400)
[2018-11-14 08:00] VITALS: BP 134/64
--- NOTE | 2018-11-14 08:42 | NUR ---
Regular diet with 75-100% intake of meals GI WDP BM yesterday Pt reports a good appetite and he likes the food. Pt did not eat 3 meals per day at home so 3 meals is more than usual Encouraged good po intake to help optimize progress RD following
--- NOTE | 2018-11-14 12:14 | NUR ---
SITTING UP IN ROOM EATING LUNCH. WEARS OXYGEN 2LNC. CALL LIGHT IN REACH
--- NOTE | 2018-11-14 15:22 | NUR ---
WALKING IN HUNT WITH THERAPY. NO OXYGEN. SATS IN MID 90'S
--- NOTE | 2018-11-14 15:33 | NUR ---
PATIENT ADMITTED TO REHAB FROM ACUTE FLOOR. DME AT HOME IS A WALKER AND A CANE. HIS PCP IS DR. ACE AT THE [facility]. PATIENT HAS DECLINED ANY FURTHER CHEMO TREATMENTS AT THIS TIME. HE WISHES TO DISCHARGE HOME WITH HIS . WILL CONTINUE TO FOLLOW WITH PATIENT.
--- NOTE | 2018-11-14 19:56 | NUR ---
SIT UP IN WHEELCHAIR AND WATCH TV. CALL LIGHT IN REACH.
[2018-11-14 22:04] VITALS: BP 111/55
--- NOTE | 2018-11-14 23:59 | NUR ---
REST QUIELTY IN BED, CALL LIGHT IN REACH.
--- NOTE | 2018-11-15 02:40 | NUR ---
RESTING IN BED WITH NO DISTRESS NOTED. RESPIRATIONS UNLABORED. CALL LIGHT IN REACH.
--- NOTE | 2018-11-15 04:21 | NUR ---
ASSISTED PT TO BATHROOM AND BACK TO BED.
[2018-11-15 08:00] VITALS: BP 129/63
--- NOTE | 2018-11-15 08:00 | NUR ---
SHIFT ASSMT COMPLETED.
[2018-11-15] MEDS ORDERED: NORCO-10 PO (08:38)
[2018-11-15] MEDS ORDERED: DILAUDID2 MG PO (08:38)
--- NOTE | 2018-11-15 10:20 | NUR ---
PATIENT DISCHARGING HOME WITH FAMILY. [facility] WILL PROVIDE THERAPY AT HOME. NO NEW DME NEEDED AT THIS TIME. [facility] WILL CALL PATIENT WITH AN APPOINTMENT FOR FOLLOW UP . PATIENT CHOICE FORM FOR HOME HEALTH AND [facility] FORMS SIGNED, COPY GIVEN TO PATIENT AND FILED IN CHART. DISCHARGE INSTRUCTIONS WITH [facility] [employer] FAXED TO PCP AND TO HOME HEALTH
--- NOTE | 2018-11-15 11:15 | NUR ---
DISCHARGED TO HOME IN STABLE CONDITION WITH SON.HOME CARE INSTRUCTIONS GIVEN
== END 2018-11-15 11:30 | disposition home health service (06) | DRG 91 ==
LOC: D.REHAB 14:59
PROVIDERS: ADMIT Emergency Medicine
DX: G72.0 Drug-induced myopathy (principal); A41.9 Sepsis, unspecified organism; J96.91 Respiratory failure, unspecified with hypoxia; C85.90 Non-Hodgkin lymphoma, unspecified, unspecified site; L03.211 Cellulitis of face; J90 Pleural effusion, not elsewhere classified; D70.9 Neutropenia, unspecified; I48.91 Unspecified atrial fibrillation; J44.9 Chronic obstructive pulmonary disease, unspecified; I25.10 Atherosclerotic heart disease of native coronary artery without angina pectoris; D64.9 Anemia, unspecified; I10 Essential (primary) hypertension; R53.1 Weakness; E87.6 Hypokalemia; R53.83 Other fatigue; F32.9 Major depressive disorder, single episode, unspecified; H00.033 Abscess of eyelid right eye, unspecified eyelid; E86.0 Dehydration; R53.81 Other malaise